=== PATIENT | female | born 1990 | race Caucasian/White ===

== ENCOUNTER 2018-07-11 03:46 | Emergency (ER) | payer SELFPAY, OTHER | END 2018-07-11 06:34 | disposition left against medical advice (07) | LOC: FTE 03:46 | DX: Z53.21 Procedure and treatment not carried out due to patient leaving prior to being seen by health care provider (principal) ==

== ENCOUNTER 2018-11-06 06:36 | Emergency (ER) | payer OTHER ==
[2018-11-06 07:10] LABS: URINE BLOOD (Dip) POC Negative (NEGATIVE); URINE GLUCOSE (Dip) POC Negative (NEGATIVE); URINE KETONES (Dip) POC Negative (NEGATIVE); URINE LEUKOCYTE EST (Dip) POC Negative (NEGATIVE); URINE NITRITE (Dip) POC Negative (NEGATIVE); URINE TOTAL PROTEIN POC Negative (NEGATIVE)
[2018-11-06 07:10] LABS: URINE PH (Dip) POC 5.5 (5.0-8.5)
[2018-11-06] MEDS: AZITHROMYCIN 500 MG TAB PO (07:14)
[2018-11-06] MEDS: CEFTRIAXONE 250 MG INJ IM (07:14)
[2018-11-06] MEDS: LIDOCAINE 1% (MPF) 5 ML VIAL INJ (07:14)
== END 2018-11-06 07:47 | disposition home or self-care (01) ==
LOC: FTE 06:36
DX: N76.0 Acute vaginitis (principal)
CPT/HCPCS: 81003; 81025; 87591; 96372; 99284-25

== ENCOUNTER → 2018-12-15 | Emergency (ER) | payer OTHER ==
[2018-12-15 17:37] LABS: URINE PH (Dip) POC 5.5 (5.0-8.5)
[2018-12-15 17:37] LABS: URINE BLOOD (Dip) POC Negative (NEGATIVE); URINE GLUCOSE (Dip) POC Negative (NEGATIVE); URINE KETONES (Dip) POC Negative (NEGATIVE); URINE LEUKOCYTE EST (Dip) POC Trace (NEGATIVE); URINE NITRITE (Dip) POC Negative (NEGATIVE); URINE TOTAL PROTEIN POC Negative (NEGATIVE)
[2018-12-15] MEDS: CEFTRIAXONE 250 MG INJ IM (17:39)
[2018-12-15] MEDS: AZITHROMYCIN 500 MG TAB PO (17:39)
== END | disposition home or self-care (01) ==
LOC: FTE 16:04
DX: A56.11 Chlamydial female pelvic inflammatory disease (principal); F17.210 Nicotine dependence, cigarettes, uncomplicated; N39.0 Urinary tract infection, site not specified; A54.9 Gonococcal infection, unspecified
CPT/HCPCS: 81003; 81025; 96372; 99284-25